=== PATIENT | female | born 1935 | race Caucasian/White ===

== ENCOUNTER 2016-05-23 05:16 | Inpatient (IN) | payer BC, OTHER ==
[2016-04-16 09:37] VITALS: BMI 32.0
[2016-04-16 10:04] LABS: MEAN CORPUSCULAR HGB CONC 32.9 g/dl (32-36)
--- NOTE | 2016-04-16 10:06 | PAT Medication Instructions ---
Service Date Apr 16, 2016. Current Home Medication List Acetaminophen (Tylenol), 1,000 MG PO TID PRN Aspirin Enteric Coated (Ecotrin Or Generic *), 81 MG PO QAM Calcium/Vitamin D (Os-Lambert 500 Plus D), 1 TAB PO QAM Chlorthalidone (Hygroton), 12.5 MG PO QAM Cholecalciferol (Vitamin D), Unknown Dose PO QPM Lovastatin (Mevacor), 20 MG PO HS Naproxen (Aleve), 2 TAB PO BID Ocuvite Preservision (Ocuvite Preservision), 1 TAB PO BID Omeprazole (Prilosec Otc *), 20 MG PO QAM Medication Instructions For Your Scheduled Surgery - Hold the following medications 10 days prior to surgery per surgeon's instructions: Naproxen (Aleve), 2 TAB PO BID - Hold the following medications the morning of surgery: Chlorthalidone (Hygroton), 12.5 MG PO QAM Calcium/Vitamin D (Os-Lambert 500 Plus D), 1 TAB PO QAM Ocuvite Preservision (Ocuvite Preservision), 1 TAB PO BID - Take the following medications the morning of surgery with a sip of water OTHERWISE NOTHING TO EAT OR DRINK AFTER MIDNIGHT: Omeprazole (Prilosec Otc *), 20 MG PO QAM Acetaminophen (Tylenol), 1,000 MG PO TID PRN (may take if needed up to 4 hours prior to surgery) Aspirin Enteric Coated (Ecotrin Or Generic *), 81 MG PO QAM - Take the following medications as scheduled the night before surgery: Cholecalciferol (Vitamin D), Unknown Dose PO QPM Lovastatin (Mevacor), 20 MG PO HS Acetaminophen (Tylenol), 1,000 MG PO TID PRN Ocuvite Preservision (Ocuvite Preservision), 1 TAB PO BID If you have any questions please call us at [phone] or [phone] or [phone]
[2016-04-16 10:11] LABS: HEMATOCRIT 39.2 % (37-47); INR 1.1 (0.9-1.1); MEAN CORPUSCULAR HEMOGLOBIN 29.9 pg (25-34); PARTIAL THROMBOPLASTIN RATIO 1.1; PROTHROMBIN TIME (PATIENT) 11.4 SECONDS (9.0-12.0); RED BLOOD COUNT 4.31 M/uL (4.2-5.4)
[2016-04-16 10:28] LABS: BASO % 0.6 %; BASO ABS # 0.04 K/uL (0-0.2); COMPLETE YES; EOS % 1.9 %; IG% 0.2 %; LYMPH % 40.5 %; LYMPH ABS # 2.55 K/uL (1.2-3.4); NEUT % 47.8 %; PLATELET COUNT 136 K/uL (130-400); PLT ESTIMATE DECREASED
[2016-04-16 10:55] LABS: BLOOD UREA NITROGEN 29 mg/dl (7-18); BUN/CREATININE RATIO 29.4 (10-20); CALCIUM 9.3 mg/dl (8.5-10.1); CARBON DIOXIDE 27 mmol/L (21-32); CHLORIDE 106 mmol/L (98-107); CREATININE 0.97 mg/dl (0.60-1.20); GLUCOSE 69 mg/dl (70-99); POTASSIUM 3.8 mmol/L (3.5-5.1); SODIUM 142 mmol/L (136-145)
[2016-04-16 10:58] LABS: C-REACTIVE PROTEIN < 0.29 mg/dl (0-0.29)
--- NOTE | 2016-04-16 11:07 | DIAGNOSTIC IMAGING REPORT ---
CHEST PREADMISSION(PA/LAT) CLINICAL HISTORY: Preoperative evaluation. COMPARISON STUDY: Chest radiograph February 21, 2009. FINDINGS: Lung volumes are normal. There is no consolidation or evidence of pulmonary edema. Cardiac size is normal. Mediastinal contours are normal. A few small nodular densities within the lungs are unchanged. IMPRESSION: No acute cardiopulmonary findings. Electronically signed by: Jerrod Castellano M.D. 04/16/2016 11:05 AM Dictated Date/Time: 04/16/2016 11:04 AM
--- NOTE | 2016-05-16 18:10 | HISTORY & PHYSICAL EXAMINATION ---
DATE OF ADMISSION: 05/23/2016 CHIEF COMPLAINT: Left hip pain. HISTORY OF PRESENT ILLNESS: The patient is an 80-year-old female from [place], well known to me for a previous right hip replacement and left knee replacement who presents for treatment of her left hip. She developed increased pain and discomfort in her left groin area. We did put a shot in her bursa in the past that has helped her minimally. She continues to have developed debilitating pain in her groin, which is increased with weightbearing. It hurts her all the time. The more she walks, the more it hurts. It radiates down into her knee. Her walking tolerance is limited due to her pain. She would like to proceed with hip replacement. PAST MEDICAL HISTORY: 1. Hypertension. 2. Elevated cholesterol. 3. Sciatica. 4. Gastroesophageal reflux disease. 5. Mild obesity with BMI of 32. PAST SURGICAL HISTORY: Include: 1. Left total knee replacement on 04/06/2009. 2. Right hip replacement back in August of 2006. 3. Tubal ligation. 4. Cholecystectomy. 5. Liver abscess. ALLERGIES: None. CURRENT MEDICINES: 1. Omeprazole 20 mg a day. 2. Lovastatin 20 mg a day. 3. Preservision twice a day, each eye. 4. Calcium with Vitamin D. 5. Hydrochlorothiazide 12.5 mg a day. 6. Baby aspirin once a day. SOCIAL HISTORY: An 80-year-old female patient from [place]. She does not smoke. FAMILY HISTORY: Noncontributory. REVIEW OF SYSTEMS: Negative for diabetes. Denies any chest pain or shortness of breath. No history of DVT or PE. PHYSICAL EXAMINATION: GENERAL: Reveals a healthy pleasant elderly female. She looks to be in relatively good health. HEENT: Benign. NECK: Supple. No lymphadenopathy. LUNGS: Clear to auscultation. HEART: Has a regular rate and rhythm. ABDOMEN: Soft, nontender, nondistended. EXTREMITIES: Grossly neurovascularly intact except as follows: Examination of the left hip and leg reveals the patient ambulates independently. She does limp on the left side. She has got pain with hip motion. Hip motion is internal rotation to neutral, external rotation to 20 degrees. She is tender over the greater trochanter bursa. Negative straight leg raise. She is neurologically intact. X-RAYS: X-rays of the left hip were reviewed. It shows advanced left hip DJD. She has got fairly concentric disease. She has got osteophytes around the acetabulum as well as the femoral head. Arthritis has progressed significantly from her films from 2012. ASSESSMENT: An 80-year-old female status post right hip replacement and left knee replacement with advanced left hip degenerative joint disease. She has failed conservative treatment and would like to have her hip replaced. PLAN: We are going to take her to the operative room and do a left total hip replacement. The risks and benefits of this procedure were explained to the patient including but not limited to DVT, PE, , infection, neurological, neurovascular, bleeding problems, pain, limited range of motion, stiffness, failure to relieve symptoms, incomplete relief of symptoms, need for further surgery in the future, fracture, leg length inequality, nerve palsy, dislocation, etc. The patient understands and desires to proceed. Informed consent was obtained. As far as discharge plans, she is planning to be discharged to home with the [facility] home health program. I will see her back 2 weeks postop. LACIE
[2016-05-23] VITALS (20 sets, daily range): BP systolic 86–140; BP diastolic 55–91; PULSE 59–88; TEMP 35.6–36.8; O2SAT 95–99; Ht 157.5 cm; Wt 81.2 kg
[~2016-05-23] VITALS: Ht 157.5 cm; Wt 81.2 kg
[~2016-05-23 05:16] MED LIST: ACET-1256 PO; ASPEC81 PO; CALC500C70 PO; CHOL100010 PO; HYG/25 PO; LOVA20TA4 PO; MULT-190 PO; NAPR1TAB9 PO; PRLSR20 PO
[2016-05-23] MEDS: LACTATED RINGER'S 1000ML 1,000 ML IV SCH ×2 (05:57→09:17)
[2016-05-23] MEDS ORDERED: METOCLOPRAMIDE HCL 10 MG TAB PO SCH (06:00)
[2016-05-23] MEDS ORDERED: CEFAZOLIN 2000 MG/60 ML D5W 60 ML IV SCH (06:00)
[2016-05-23] MEDS ORDERED: FAMOTIDINE 20 MG TAB PO SCH (06:00)
[2016-05-23] MEDS ORDERED: LACTATED RINGER'S 1000ML IV SCH (06:00)
[2016-05-23] MEDS ORDERED: ACETAMINOPHEN 500 MG TAB PO SCH (06:00)
[2016-05-23] MEDS ORDERED: BUPIVACAINE LIPOSOME 266 MG, BUPIVACAINE/EPINEPHRINE INJ 50 ML, SODIUM CHLORIDE 0.9% PF... INFIL SCH ×3 (06:00)
[2016-05-23] MEDS ORDERED: GABAPENTIN 300 MG CAP PO SCH (06:00)
[2016-05-23] MEDS ORDERED: TRANEXAMIC ACID INJ 1,000 MG in SODIUM CHLORIDE 0.9% 100ML 100 ML IV SCH (06:00)
[2016-05-23] MEDS ORDERED: SCOPOLAMINE 1.5 MG TDSY TD SCH (06:00)
[2016-05-23] MEDS ORDERED: LACTATED RINGER'S 1000ML 500 ML IV ONE (06:00)
[2016-05-23] MEDS ORDERED: BUPIVACAINE 0.5 % 5 MG/1 ML PF 10ML VIAL ONE (06:15)
[2016-05-23] MEDS ORDERED: BUPIVACAINE/EPINEPHRINE 0.5% MPF 1:200,000 30 ML VIAL ONE (06:25)
[2016-05-23] MEDS ORDERED: BACITRACIN 50000 UNIT VIAL ONE (06:25)
[2016-05-23] MEDS ORDERED: LIDOCAINE HCL 2% 2 ML VIAL (20MG/ML) ONE (06:28)
[2016-05-23] MEDS ORDERED: PROPOFOL IV EMULSION 10 MG/ML 20 ML VIAL IV ONE (06:28)
[2016-05-23] MEDS ORDERED: FENTANYL CITRATE INJ 50 MCG/1 ML 2 ML VIAL ONE (06:28)
[2016-05-23] MEDS ORDERED: MoRPHine SULFATE PF 1 MG/ML 10 ML AMP/VIAL ONE (06:29)
--- NOTE | 2016-05-23 06:46 | History & Physical Bridge Note ---
H&P Re-Evaluation Bridge Note: I have examined the patient, reviewed the History & Physical and in the interval since the performance of the History & Physical I have noted the following changes of clinical significance: No changes noted
[2016-05-23] MEDS ORDERED: PHENYLEPHRINE 100MCG/ML 5ML SYR ONE (07:24)
[2016-05-23] MEDS ORDERED: EpHEDrine SULFATE 50MG/5ML SYR ONE (07:24)
[2016-05-23] MEDS ORDERED: ATROPINE SULFATE 0.1 MG/ML 5ML SYR IV PRN (07:30)
[2016-05-23] MEDS ORDERED: EpHEDrine SULFATE INJ 50 MG/ML AMP IV PRN ×2 (07:30→09:30)
[2016-05-23] MEDS ORDERED: FENTANYL CITRATE INJ 50 MCG/1 ML 2 ML VIAL IV PRN (07:30)
[2016-05-23] MEDS ORDERED: ONDANSETRON INJ 2 MG/ML 2 ML VIAL IV PRN ×3 (07:30→09:30)
[2016-05-23] MEDS ORDERED: ESMOLOL HCL 10 MG/ML 10 ML VIAL ONE (07:49)
--- NOTE | 2016-05-23 08:42 | [facility] Post Operative Brief Note ---
Immediate Operative Summary Operative Date May 23, 2016. Pre-Operative Diagnosis Left Hip Advanced Degenerative Joint Disease Post-Operative Diagnosis Left Hip Advanced Degenerative Joint Disease + Chronic Hip Abductor Avuslion Procedure(s) Performed Left Total Hip Arthroplasty--Uncemented with Abductor Repair Surgeon Dr. Mejia Bellows Charger Assembler Surgeon(s) MARGRET Forman Estimated Blood Loss 300 ml Findings Hip DJD + Chronic Hip Abductor Avulsion Fluids (cc crystalloids) 1800 cc Specimens A. Left Femoral Head Drains None Anesthesia Spinal Complication(s) None Disposition Recovery Room / PACU
[2016-05-23] MEDS ORDERED: DiphenhydrAMINE HCL 50 MG/ML VIAL IV PRN ×2 (08:45→09:30)
[2016-05-23] MEDS ORDERED: MAGNESIUM HYDROXIDE SUSP 30 ML UDC PO PRN (08:45)
[2016-05-23] MEDS ORDERED: HYDROmorphone INJ 0.5 MG/0.5 ML SYR IV PRN (08:45)
[2016-05-23] MEDS ORDERED: METOCLOPRAMIDE HCL INJ 5 MG/ML 2 ML VIAL IV PRN (08:45)
[2016-05-23] MEDS ORDERED: BISACODYL 10 MG SUPP PR PRN (08:45)
[2016-05-23] MEDS ORDERED: ALUMINUM/MAGNESIUM/SIMETH (MAALOX MAX) 30 ML UDC PO PRN (08:45)
[2016-05-23] MEDS ORDERED: ZOLPIDEM TARTRATE 5 MG TAB PO PRN (08:45)
[2016-05-23] MEDS ORDERED: OMEPRAZOLE 20 MG PO SCH (09:00)
--- NOTE | 2016-05-23 09:23 | OPERATIVE REPORT ---
DATE OF OPERATION: 05/23/2016 PREOPERATIVE DIAGNOSIS: Left hip degenerative joint disease. POSTOPERATIVE DIAGNOSIS: 1. Left hip degenerative joint disease. 2. Left chronic hip abductor avulsion. PROCEDURE PERFORMED: 1. Left uncemented total hip arthroplasty. 2. Left hip abductor repair. SURGEON: Dr. Gamaliel Mejia. CLAIMS EXAMINER: Kolton Snider PA-C. COMPLICATIONS: None. ESTIMATED BLOOD LOSS: 300 mL. FLUID REPLACEMENT: 1800 mL crystalloid fluid replacement. DRAINS: None. SPECIMENS: Left femoral head sent for pathology. OPERATIVE INDICATIONS: The patient is an 80-year-old fairly healthy active female who has had a long history of joint problems in the past. She had a right hip replacement about 10 years ago and a left knee replacement 7 years ago. Over the past several years she has developed increased pain and discomfort in her left hip and thigh. X-rays revealed advanced hip DJD. The patient elected to proceed with operative treatment. OPERATIVE FINDINGS: Operative findings revealed advanced left hip DJD. She had grade 4 [id number] disease of the femoral head and acetabulum. Fairly significant osteophytes around the acetabulum as well. Moderate synovitis. A large hip joint effusion. OPERATIVE IMPLANTS: Operative implants consisted of: 1. A Biomet G7 size 52 mm acetabular shell. 2. An apex hole eliminator. 3. A 6.5 cancellous acetabular screws, 1 at 35 mm length and 1 at 20 mm length. 4. Highly cross-linked polyethylene liner with 52 mm outer diameter, 32 mm inner diameter with a mcghee placed inferior and posterior. 5. A DePuy size 12 small stature AML femoral stem. 6. A +9/32 mm metal articular ball. OPERATIVE PROCEDURE: The patient taken to the operating room, identified and placed on the operating table in supine position. All contact areas were appropriately padded. IV antibiotics were provided by anesthesia team. A spinal anesthetic had been implemented in the holding area. Melo catheter was placed in sterile fashion. The patient was then placed in the right lateral decubitus position. An axillary roll was placed. Stlberg hip positioner used for positioning. Left hip and leg were then prepped and draped in the usual sterile fashion. A posterolateral approach to the left hip was then performed through a curvilinear incision centered over the greater trochanter. Sharp dissection was carried down through the subcutaneous tissue down to the level of the IT band and gluteal fascia. The IT band and gluteal fascia were then incised longitudinally in line with skin incision. The underlying greater trochanteric bursa was excised. There was a chronic avulsion of the hip abductors both anteriorly and superiorly. There was some bursal tissue which kept some adhesions to some parts. The piriformis and external rotators were then tagged and taken off the posterior aspect of the femur. Great care was taken throughout the procedure to protect the sciatic nerve at all times. Posterior capsulotomy was then performed leaving a large flap for later repair. Hip was internally rotated and dislocated. Femoral neck osteotomy cut was then made with the final cut about a cm above lesser trochanter. The femur was retracted anteriorly and attention was then drawn to the acetabulum. The acetabular labrum was excised. The pulvinar fat was excised. Sequential reaming of the acetabulum was then performed beginning with a size 45 and progressing up to 51. A 52 mm Biomet G7 acetabular shell was then placed in about 40 degrees of lateral opening and 20 degrees of anteversion. It was fixed with a two 6.5 cancellous acetabular screws. The anterior osteophyte was removed. A trial liner was placed. Attention was then drawn to the femur. The proximal femur was entered with a cookie cutter followed by canal finder and lateralizing reamer. Sequential reaming of the femur was then performed beginning with a size 9 and progressing up to 11.5. I then broached beginning with a size 5 small and progressing to a 12 small. We trialed the hip. It was a little loose with a +5 articular ball. With the +9 articular ball, the leg lengths seemed appropriate. Soft tissue tension seemed more appropriate and the hip was fully stable in full extension, external rotation, flexion to 90 degrees, internal rotation to about [address] a mcghee inferior and posterior to maximize stability in flexion, especially with her abductor avulsion. I considered placing trying to place a large implant as there seemed like there was some proximal room but I did not think there was enough for the large stem, especially in this elderly bone. We elected to place these implants. All trial implants were removed. An apex hole eliminator was placed. Highly cross-linked polyethylene liner with a mcghee placed inferior and posterior was placed. A 12 small stature AML femoral stem was impacted in position. A +9/32 mm metal articular ball was placed. The hip was located and once again found to be stable. Attention was then drawn toward closing. The wound was irrigated with copious amounts of pulsatile lavage solution. I did inject locally with 100 mL of a combination of 20 mL of Exparel, 30 mL of normal saline, 50 mL of 0.25% Marcaine with epinephrine. The posterior capsule and external rotators were repaired through drill holes in the posterior trochanter with #2 Ti-Cron suture. I then placed a single Biomet JuggerKnot anchor anteriorly. I scuffed up the anterior bone to the greater trochanter with the use of cautery. I then placed both these sutures through the anterior and superior hip abductors and then tied this down. I then used the sutures to repair the posterior hip capsule and used a free needle to pass these sutures through the superior aspect of the hip abductors. I pulled this down after scuffing up the trochanter and then tied this. We got good hip abductor approximation. Attention was then drawn toward closing. The wound was irrigated once again with pulsatile lavage solution. The IT band and gluteal fascia were then closed with #1 PDS suture in running fashion. The subcutaneous tissues were then closed with 2 layers with the deep layer #1 Vicryl suture and subcutaneous tissues with 2-0 Dexon suture in a buried interrupted fashion. Skin was closed with skin holly. The leg was then cleaned and dried and a sterile dressing of Xeroform, 4 x 4, ABD pad and foam tape was applied. The patient then transferred to the recovery room in stable condition. The patient tolerated the procedure with no complications. All needle and sponge counts were correct at the end of the operation. I attest to the content of the Intraoperative Record and any orders documented therein. Any exceptio ns are noted below.
[2016-05-23] MEDS ORDERED: MIDAZOLAM HCL 1 MG/ML 2ML VIAL ONE (09:28)
[2016-05-23] MEDS ORDERED: NALOXONE HCL INJ 1 MG in SODIUM CHLORIDE 0.9% 1000ML 1,000 ML IV PRN (09:29)
[2016-05-23] MEDS ORDERED: NALOXONE HCL INJ 0.08 MG in SYRINGE 1.8 ML IV PRN (09:29)
[2016-05-23] MEDS ORDERED: GLYCOPYRROLATE INJ 0.2 MG/ML VIAL ONE (09:29)
[2016-05-23] MEDS ORDERED: LACTATED RINGER'S 1000ML 500 ML IV PRN (09:29)
[2016-05-23] MEDS ORDERED: SODIUM CHLORIDE 0.9% 1000ML 1,000 ML IV PRN (09:29)
--- NOTE | 2016-05-23 09:29 | Anesthesiology Progress Note ---
Anesthesia Post Op Note Date & Time May 23, 2016 at 09:29 Vital Signs Pain Intensity: 0 Vital Signs Past 12 Hours Date Time Temp Pulse Resp B/P Pulse Ox O2 Delivery O2 Flow Rate FiO2 05/23/16 09:10 36.3 84 22 109/55 97 Nasal Cannula 2 05/23/16 09:00 88 18 100/56 97 Nasal Cannula 2 05/23/16 08:50 91 16 97/55 98 Nasal Cannula 2 05/23/16 08:41 36.4 95 20 90/53 97 Nasal Cannula 2 05/23/16 05:53 36.6 62 16 122/72 98 Room Air Notes Mental Status: alert / awake / arousable, participated in evaluation Pt Amnestic to Procedure: Yes Nausea / Vomiting: adequately controlled Pain: adequately controlled Airway Patency, RR, SpO2: stable & adequate BP & HR: stable & adequate Hydration State: stable & adequate Neuraxial Anesthesia: was administered, sensory block is resolving Anesthetic Complications: no major complications apparent
[2016-05-23] MEDS ORDERED: MEPERIDINE HCL 25 MG/ML CARP IV PRN (09:30)
[2016-05-23] MEDS ORDERED: NO NARCOTICS OR SEDATIVES SCH (09:30)
[2016-05-23] MEDS ORDERED: MoRPHine SULFATE 2 MG/ML CARP IV PRN (09:30)
[2016-05-23] MEDS ORDERED: NALBUPHINE HCL INJ 10 MG/ML AMP IV PRN (09:30)
[2016-05-23] MEDS ORDERED: NALOXONE HCL 0.4 MG/1 ML VIAL/CARP IV PRN (09:30)
[2016-05-23] MEDS ORDERED: MoRPHine SULFATE PF 1 MG/ML 10 ML AMP/VIAL IT PRN (09:30)
--- NOTE | 2016-05-23 09:42 | DIAGNOSTIC IMAGING REPORT ---
AP PELVIS AND LEFT HIP 2 VIEWS CLINICAL HISTORY: Postop left hip arthroplasty COMPARISON STUDY: AP pelvis dated 11/30/2015 FINDINGS: There are old left ischio pubic ring fractures. There is evidence for a prior total right hip arthroplasty. There is a new total left hip arthroplasty. The acetabular and femoral components appear well seated. There is no dislocation. Ovoid surgical skin holly are visualized. There is air in the soft tissues consistent with recent surgery. IMPRESSION: Postsurgical changes of a recent total left hip arthroplasty. Electronically signed by: Elmo Benz M.D. 05/23/2016 9:41 AM Dictated Date/Time: 05/23/2016 9:39 AM
[2016-05-23] MEDS: KETOROLAC TROMETHAMINE 15 MG/ML VIAL IV. SCH ×3 (12:26→23:52)
[2016-05-23] MEDS: D5W AND 1/2NSS + 20MEQ KCL 1,000 ML IV SCH ×2 (12:26→21:05)
--- NOTE | 2016-05-23 13:47 | PROGRESS NOTE ---
DATE: 05/23/2016 DATE: 05/23/2016. SUBJECTIVE: An 80-year-old white female postop from a left hip replacement. She is doing well. She is resting in bed. She denies any pain. No chest pain or shortness of breath. Not feeling dizzy or lightheaded. OBJECTIVE: VITAL SIGNS: Temperature is 36.2. Vital signs stable. PHYSICAL EXAMINATION: GENERAL: A pleasant elderly female. She is lying in bed, looks comfortable. LUNGS: Clear to auscultation. HEART: Regular rate and rhythm. ABDOMEN: Soft, nontender, nondistended. EXTREMITY EXAMINATION: Grossly neurovascularly intact except as follows: Examination of the left lower extremity reveals the leg to be well aligned. Leg lengths are equal. Hip is located. She can dorsiflex and plantarflex her foot appropriately. She is neurologically intact. X-RAYS: X-rays of the left hip from recovery room were reviewed. It shows uncemented total hip arthroplasty. Components looked to be in good position. No signs of problems. ASSESSMENT: An 80-year-old female postop from a left hip replacement doing well. Her pain is controlled. She is neurologically intact. Hip is located. PLAN: 1. DVT prophylaxis including thigh-high TEDs, SCDs, and aspirin twice a day. 2. PT/OT. Weightbearing as tolerated. Left total hip protocol. 3. Pain control. Doing well with current pain regimen. We will try and limit narcotics to avoid confusion. 4. IV antibiotics x24 hours. 5. Disposition: Plan to discharge to home with some home health once adequately recovered.
[2016-05-23] MEDS ORDERED: TRANEXAMIC ACID INJ 1,000 MG in SODIUM CHLORIDE 0.9% 100ML 100 ML IV ONE (14:45)
[2016-05-23] MEDS: ACETAMINOPHEN 500 MG TAB PO SCH ×2 (15:05→21:08)
[2016-05-23] MEDS: FERROUS GLUCONATE 324 MG TAB PO SCH ×2 (15:06→18:17)
[2016-05-23] MEDS: CHECK SCOPOLAMINE PATCH PLACEMENT SCH ×2 (16:00→23:53)
[2016-05-23] MEDS: CEFAZOLIN IV 2,000 MG in DEXTROSE 5% 50ML 50 ML IV SCH ×2 (16:01→23:52)
[2016-05-23] MEDS ORDERED: ULT50X PO (20:24)
[2016-05-23] MEDS ORDERED: FRRG PO (20:24)
[2016-05-23] MEDS ORDERED: ASPEC325 PO (20:24)
[2016-05-23] MEDS ORDERED: ACET-1138 PO (20:24)
[2016-05-23] MEDS: ASPIRIN 325 MG ECTAB PO SCH (21:06)
[2016-05-23] MEDS: DOCUSATE SODIUM 100 MG CAP PO SCH (21:06)
[2016-05-23] MEDS: LOVASTATIN 20 MG TAB PO SCH (21:10)
[2016-05-23] MEDS: CEROVITE ADV FORMULA TAB PO SCH (21:11)
[2016-05-24] VITALS (8 sets, daily range): BP systolic 96–152; BP diastolic 58–96; PULSE 60–98; TEMP 36.4–37; O2SAT 95–99
[2016-05-24] MEDS ORDERED: DC INTRASPINAL MORPHINE ONE (01:00)
[2016-05-24 05:55] LABS: MEAN CELL VOLUME 89.2 fL (80-100); MEAN CORPUSCULAR HEMOGLOBIN 28.9 pg (25-34); MEAN CORPUSCULAR HGB CONC 32.4 g/dl (32-36); PLATELET COUNT 114 K/uL (130-400); RED BLOOD COUNT 3.25 M/uL (4.2-5.4); WHITE BLOOD COUNT 8.17 K/uL (4.8-10.8)
[2016-05-24 05:56] LABS: BASO % 0.2 %; BASO ABS # 0.02 K/uL (0-0.2); BUN/CREATININE RATIO 18.7 (10-20); CALCIUM 7.9 mg/dl (8.5-10.1); COMPLETE YES; CREATININE 0.89 mg/dl (0.60-1.20); DOHLE BODIES 1+; EOS % 0.4 %; IG% 0.2 %; LYMPH % 24.6 %; LYMPH ABS # 2.01 K/uL (1.2-3.4); MONO % 13.1 %; NEUT % 61.5 %; PLT ESTIMATE NORMAL; POTASSIUM 3.5 mmol/L (3.5-5.1)
[2016-05-24] MEDS: ACETAMINOPHEN 500 MG TAB PO SCH ×3 (06:04→22:12)
[2016-05-24] MEDS: D5W AND 1/2NSS + 20MEQ KCL 1,000 ML IV SCH (06:05)
[2016-05-24] MEDS: KETOROLAC TROMETHAMINE 15 MG/ML VIAL IV. SCH ×4 (06:05→23:58)
[2016-05-24] MEDS: CHECK SCOPOLAMINE PATCH PLACEMENT SCH ×3 (08:00→23:33)
--- NOTE | 2016-05-24 08:22 | PROGRESS NOTE ---
DATE: 05/24/2016 SUBJECTIVE: An 80-year-old white female postop day 1 from a left hip replacement. She is doing well. Not having any pain. Denies any chest pain or shortness of breath. Not feeling dizzy or lightheaded. OBJECTIVE: VITAL SIGNS: Temperature 36.8. Vital signs stable. PHYSICAL EXAMINATION: GENERAL: Reveals a pleasant elderly female. She is lying in bed and looks comfortable. LUNGS: Clear to auscultation. HEART: Has a regular rate and rhythm. ABDOMEN: Soft, nontender, nondistended. EXTREMITIES: Grossly neurovascularly intact except as follows: Examination of the left lower extremity reveals the leg to be well aligned. Hip is located. Dressing is clean, dry and intact. She can dorsiflex and plantarflex her foot appropriately. NEUROLOGIC: She is neurologically intact. LABORATORY DATA: Hemoglobin 9.4, hematocrit 29.0. Electrolytes are stable. ASSESSMENT: An 80-year-old white female postop day 1 from a left total hip replacement and hip abductor repair, doing pretty well. Pain is controlled. Hip is located. She is neurologically intact. PLAN: 1. DVT prophylaxis including thigh-high TEDs, SCDs, and aspirin twice a day. 2. PT/OT. She can weightbear as tolerated. Left total hip protocol. No active hip abduction for the first 6 weeks. 3. Pain control. Doing well with the current pain regimen. 4. Disposition: Plan to discharge her home with home health once adequately recovered.
--- NOTE | 2016-05-24 08:44 | Discharge Instructions ---
Discharge Instructions Admission Reason for Admission: Left Hip Degenerative Joint Disease, Bursitis Of H Discharge Discharge Diagnosis / Problem: Left Hip Replacement Discharge Goals Goal(s): Decrease discomfort, Improve function, Increase independence, Improve disease control, Therapeutic intervention Activity Recommendations Activity Limitations: per Instructions/Follow-up section (Total Hip Precautions ) Weightbearing Status: Left weightbearing . Instructions / Follow-Up Instructions / Follow-Up ACTIVITY RECOMMENDATIONS: Physical Therapy: * Aggressive physical therapy is not usually needed. You will learn to take care of yourself safely and walk. * Follow the "Hip Precautions Instructions." * In some cases, the social work professor at the hospital will arrange to have a therapist come to your house for the first couple of weeks to help you learn these skills. * You need to practice on your own or with the help of a family member as needed. * When you learn these skills, most of the therapy can be done on your own. Home Exercise: * You were shown a series of exercises in the hospital. Do these exercises three to four times each day including the exercises you were shown in physical therapy. Walking: * Get up and walk several times each day. For the first four weeks, try not to stand or walk for more than one hour at a time. If you do stand or walk for more than one hour, you will not hurt anything, but your leg will likely swell. * As you feel comfortable, you may change from the walker or crutches to a cane and then to independent walking. MEDICATIONS: New Medicine: * You will likely be taking one or more of these medicines: 1. Tramadol - Take, as directed, when you need it, every four to six hours to control your pain. 2. Iron Sulfate - Take three times each day for the month after surgery to help you replace the blood lost during surgery. 3. Aspirin - Thins your blood to lessen the chance of forming a blood clot. * The most common side effects of pain medicine and iron are nausea and constipation. If nausea or constipation is too much of a problem or if you have any questions about your new medicines or doses, call [facility] at . We will try to help you manage these issues. VERY IMPORTANT TO READ AND REVIEW" Pain: * The immediate post-operative period after hip replacement surgery is often quite painful. * You are given a prescription for pain medicine. You should take it, as directed, when you need it, especially before physical therapy and before going to bed. Pain that interferes with sleep is very common and can last several months. * You will likely need pain medicine for the first two to four weeks. It will not stop all of the pain. The pain will lessen and as you feel better, you may change to milder pain medicine such as Tylenol. * The most common side effects of pain medicine are nausea and constipation, so don't take more than you need. SPECIAL CARE INSTRUCTIONS: TEDs/Elastic Stockings: * The white elastic stockings help limit swelling and prevent blood clots from forming in your legs. The more you wear them, the more they work. * Wear them for six weeks. Prevention of Infection: * Take antibiotics one hour before any dental cleaning, dental work, urological procedure, gastrointestinal procedure or any invasive surgery in order to prevent your new joint from getting infected. * You may get the antibiotics from the doctor performing the procedure or you may call our office at before and we will call in a prescription to the pharmacy of your choice. Things to Watch For: * Drainage from the incision site that occurs more than one week after your surgery. * Severely increased leg pain or swelling. * Increased redness at the incision site. * Fever above 102 degrees Fahrenheit. * Unusual chest pain or shortness of breath. * Unusual pain or burning with urination. Call [facility] at with any of the above problems or if you have any questions about your medicines or recovery. FOLLOW UP VISIT: Make an appointment to see your doctor for approximately two weeks after surgery for a progress check and staple removal by calling the office at . Current Hospital Diet Patient's current hospital diet: Regular Diet Discharge Diet Recommended Diet: Regular Diet Procedures Procedures Performed: Left Total Hip Arthroplasty--Uncemented with Abductor Repair Pending Studies Studies pending at discharge: no Medical Emergencies . Who to Call and When: Medical Emergencies: If at any time you feel your situation is an emergency, please call [phone] immediately. . Non-Emergent Contact Non-Emergency issues call your: Surgeon . "Provider Documentation" section prepared by Gamaliel Mejia. VTE Core Measure Inpt VTE Proph given/why not?: Other Anticoagulation, T.E.D. Stockings, SCD's
[2016-05-24] MEDS: CEROVITE ADV FORMULA TAB PO SCH ×2 (08:54→20:15)
[2016-05-24] MEDS: FERROUS GLUCONATE 324 MG TAB PO SCH ×3 (08:55→18:02)
[2016-05-24] MEDS: PANTOprazole SOD 40 MG TAB PO SCH (08:55)
[2016-05-24] MEDS: CHLORTHALIDONE 25 MG TAB PO SCH (08:55)
[2016-05-24] MEDS: ASPIRIN 325 MG ECTAB PO SCH ×2 (08:55→20:15)
[2016-05-24] MEDS: DOCUSATE SODIUM 100 MG CAP PO SCH ×2 (08:55→20:15)
[2016-05-24] MEDS: CALCIUM 600MG + VIT D 400 IU TAB PO SCH (08:56)
[2016-05-24] MEDS ORDERED: MULTIVITAMIN TAB PO SCH (09:00)
[2016-05-24] MEDS: LOVASTATIN 20 MG TAB PO SCH (20:15)
[2016-05-24] MEDS: TRAMADOL HCL 50 MG TAB PO PRN (20:16)
[2016-05-25] MEDS: ACETAMINOPHEN 500 MG TAB PO SCH (06:13)
[2016-05-25] MEDS: KETOROLAC TROMETHAMINE 15 MG/ML VIAL IV. SCH (06:14)
[2016-05-25 07:01] VITALS: BP 123/74; PULSE 88; TEMP 36.8; O2SAT 94
[2016-05-25] MEDS: DOCUSATE SODIUM 100 MG CAP PO SCH (08:41)
[2016-05-25] MEDS: CEROVITE ADV FORMULA TAB PO SCH (08:41)
[2016-05-25] MEDS: ASPIRIN 325 MG ECTAB PO SCH (08:41)
[2016-05-25] MEDS: CALCIUM 600MG + VIT D 400 IU TAB PO SCH (08:42)
[2016-05-25] MEDS: CHLORTHALIDONE 25 MG TAB PO SCH (08:42)
[2016-05-25] MEDS: PANTOprazole SOD 40 MG TAB PO SCH (08:42)
[2016-05-25] MEDS: FERROUS GLUCONATE 324 MG TAB PO SCH (08:42)
[2016-05-25 08:52] VITALS: BP 123/74; PULSE 88; TEMP 36.8; O2SAT 94
--- NOTE | 2016-05-25 10:35 | PROGRESS NOTE ---
DATE: 05/25/2016 SUBJECTIVE: An 80-year-old female, postop day 2 from left total hip replacement. She is doing well. Pain is controlled. No chest pain or shortness of breath. Not feeling dizzy or lightheaded. OBJECTIVE: VITAL SIGNS: Temperature 36.8. Vital signs stable. PHYSICAL EXAMINATION: GENERAL: Reveals a healthy, pleasant elderly female. She is lying in bed and looks comfortable. LUNGS: Clear to auscultation. HEART: Regular rate and rhythm. ABDOMEN: Soft, nontender, nondistended. EXTREMITIES: Grossly neurovascularly intact except as follows: Examination of the left lower extremity reveals the incision to be clean, dry and intact. Leg lengths were equal. She can dorsiflex and plantarflex her foot appropriately. She is neurologically intact. ASSESSMENT: An 80-year-old white female, postop day 2 from left total hip replacement, doing pretty well. Pain is controlled. Hip is located. She is neurologically intact. PLAN: 1. DVT prophylaxis including thigh-high TEDs, SCDs, and aspirin twice a day. 2. PT/OT. Weightbearing as tolerated. Left total hip protocol. 3. Pain control, doing pretty well with current pain regimen. 4. Disposition: Plan to discharge to home with some home health.
[2016-05-25] MEDS: TRAMADOL HCL 50 MG TAB PO PRN (10:52)
--- NOTE | 2016-06-04 15:34 | DISCHARGE SUMMARY ---
ADMITTING PHYSICIAN AND SURGEON: Dr. Mejia. ADMITTING DIAGNOSIS: Left hip degenerative joint disease. SURGERIES PERFORMED: 1. Left total hip arthroplasty. 2. Left hip abductor repair. SECONDARY DIAGNOSES: Includes hypertension, elevated cholesterol, sciatica, gastroesophageal reflux disease, and mild obesity. CONSULTS: None obtained. HISTORY AND PHYSICAL EXAMINATION: Well documented in the patient's chart. HOSPITAL COURSE: The patient was admitted on 05/23/2016 and underwent total hip arthroplasty as above. She tolerated the procedure well. There were no complications. She was transferred to PACU postoperatively and later to the orthopedic floor for further care. She was given Ancef for antibiotic prophylaxis, ZBIGNIEW stockings, SCDs and aspirin for DVT prophylaxis. Hemoglobin, hematocrit and vital signs were monitored during her hospital stay and remained stable. She developed some postoperative anemia with a hemoglobin of 9.4. She did not require blood transfusions. There were no complications. By postoperative day #2, she was tolerating a general diet. Pain was controlled with oral pain medicine. She was participating in physical therapy and had no signs or symptoms of deep vein thrombosis. On postoperative day #2, she was discharged home in good condition, set up with home health services. She was given printed discharge instructions including prescriptions for extra strength Tylenol, aspirin 325 mg b.i.d., iron supplement and tramadol. Continue her home medicines with the exception of her home dose of aspirin and Tylenol, which were changed. Continue physical therapy and weightbearing as tolerated. Continue total hip precautions, ZBIGNIEW stockings and physical therapy. Follow up with Dr. Mejia in 10-12 days or sooner for problems or concerns.
== END 2016-05-25 10:55 | disposition home health service (06) | DRG 470 ==
LOC: ENRESERVDT → ENRESERVTM → ENRESERV → C.ACU 05:16 → C.3E 06:35
PROVIDERS: ADMIT Orthopaedic Surgery Sports Medicine; ATTEND Orthopaedic Surgery Sports Medicine
PROC: 0MQ Bursae and Ligaments, Repair (ICD-10-PCS; 2016-05-23)
PROC: 0SRB02A Replacement of Left Hip Joint with Metal on Polyethylene Synthetic Substitute, Uncemented, Open Approach (ICD-10-PCS; principal; 2016-05-23 07:00)
DX: M16.12 Unilateral primary osteoarthritis, left hip (principal); E78.00 Pure hypercholesterolemia, unspecified; I10 Essential (primary) hypertension; K21.9 Gastro-esophageal reflux disease without esophagitis; E66.9 Obesity, unspecified; Z96.641 Presence of right artificial hip joint; Z96.652 Presence of left artificial knee joint; Z98.890 Other specified postprocedural states

== ENCOUNTER → 2016-07-25 | Outpatient (CLI) | payer BC ==
[~2016-07-25] MED LIST changes: +ACET-1138 PO; -ACET-1256 PO; +ASPEC325 PO; -ASPEC81 PO; +FRRG PO; +ULT50X PO
[2016-07-25 13:51] LABS: CALCIUM 9.7 mg/dl (8.5-10.1)
[2016-07-25 13:55] LABS: ALT/SGPT 20 U/L (12-78); AST/SGOT 16 U/L (15-37); BLOOD UREA NITROGEN 27 mg/dl (7-18); BUN/CREATININE RATIO 24.3 (10-20); CARBON DIOXIDE 26 mmol/L (21-32); CHLORIDE 109 mmol/L (98-107); CHOLESTEROL 172 mg/dl (0-200); GLUCOSE 98 mg/dl (70-99); MAGNESIUM 1.9 mg/dl (1.8-2.4); POTASSIUM 3.7 mmol/L (3.5-5.1); SODIUM 143 mmol/L (136-145); TRIGLYCERIDES 233 mg/dl (0-150); VERY LOW DENSITY LIPOPROT CALC 47 mg/dl
[2016-07-25 13:58] LABS: CHOLESTEROL/HDL RATIO 3.8; HDL CHOLESTEROL 45 mg/dl; LDL CHOLESTEROL CALCULATED 80 mg/dl
== END | disposition home or self-care (01) ==
LOC: C.LABMFLN 11:10
PROVIDERS: ATTEND Family Medicine
DX: E78.00 Pure hypercholesterolemia, unspecified (principal); I10 Essential (primary) hypertension; E55.9 Vitamin D deficiency, unspecified

== ENCOUNTER → 2016-07-31 | Outpatient (CLI) | payer BC ==
[2016-07-31 13:28] LABS: URINE APPEARANCE CLOUDY (CLEAR); URINE BILIRUBIN NEG (NEG); URINE COLOR YELLOW; URINE EPITHELIAL CELL AUTO >30 /lpf (0-5); URINE NITRITE POS (NEG); URINE PH 5.5 (4.5-7.5); URINE SPECIFIC GRAVITY 1.017 (1.000-1.030); UROBILINOGEN NEG (NEG)
[2016-07-31 13:38] LABS: MANUAL MICROSCOPIC REQUIRED? NO; REVIEW REQ? YES
== END | disposition home or self-care (01) ==
LOC: C.LABMFLN 10:15
PROVIDERS: ATTEND Family Medicine
DX: R35.0 Frequency of micturition (principal)

== ENCOUNTER → 2017-01-09 | Outpatient (CLI) | payer BC ==
[2017-01-09 14:01] LABS: ALT/SGPT 21 U/L (12-78); AST/SGOT 19 U/L (15-37); BLOOD UREA NITROGEN 21 mg/dl (7-18); BUN/CREATININE RATIO 27.2 (10-20); CALCIUM 9.3 mg/dl (8.5-10.1); CARBON DIOXIDE 26 mmol/L (21-32); CHLORIDE 109 mmol/L (98-107); CREATININE 0.78 mg/dl (0.60-1.20); GLUCOSE 90 mg/dl (70-99); POTASSIUM 3.8 mmol/L (3.5-5.1); SODIUM 142 mmol/L (136-145)
[2017-01-09 14:04] LABS: CHOLESTEROL 187 mg/dl (0-200); CHOLESTEROL/HDL RATIO 3.4; HDL CHOLESTEROL 55 mg/dl; LDL CHOLESTEROL CALCULATED 99 mg/dl; TRIGLYCERIDES 166 mg/dl (0-150); VERY LOW DENSITY LIPOPROT CALC 33 mg/dl
== END | disposition home or self-care (01) ==
LOC: C.LABMFLN 08:40
PROVIDERS: ATTEND Family Medicine
DX: E78.00 Pure hypercholesterolemia, unspecified (principal); I10 Essential (primary) hypertension; E55.9 Vitamin D deficiency, unspecified

== ENCOUNTER → 2017-02-25 | Outpatient (CLI) | payer BC ==
--- NOTE | 2017-02-26 07:53 | MAMMOGRAPHY REPORT ---
BILATERAL DIGITAL SCREENING MAMMOGRAM TOMOSYNTHESIS WITH CAD: 02/25/2017 CLINICAL HISTORY: Routine screening. Patient has no complaints. TECHNIQUE: Breast tomosynthesis in addition to standard 2D mammography was performed. Current study was also evaluated with a Computer Aided Detection (CAD) system. COMPARISON: Comparison is made to exams dated: 02/19/2015 mammogram, 02/13/2014 mammogram, 3 mammogram, 01/16/2012 mammogram, 02/03/2011 mammogram, and 04/06/2009 mammogram - [facility] . BREAST COMPOSITION: The tissue of both breasts is almost entirely fatty. FINDINGS: No suspicious masses, calcifications, or areas of architectural distortion are noted in ei ther breast. There has been no significant interval change compared to prior exams. IMPRESSION: ACR BI-RADS CATEGORY 1: NEGATIVE There is no mammographic evidence of malignancy. A 1 year screening mammogram is recommended. The pa tient will receive written notification of the results. Approximately 10% of breast cancers are not detected with mammography. A negative mammographic report should not delay biopsy if a clinically suggestive mass is present. Meenakshi Arguello M.D. /:02/25/2017 15:26:42 Jewel Gauger: Arlet JIMENES)(Khris), [facility] letter sent: Normal 1/2 BI-RADS Code: ACR BI-RADS Category 1: Negative
== END | disposition home or self-care (01) ==
LOC: C.MAMM 13:38
PROVIDERS: ATTEND Family Medicine
DX: Z12.31 Encounter for screening mammogram for malignant neoplasm of breast (principal)

== ENCOUNTER → 2017-04-27 | Day surgery (SDC) | payer BC ==
[2017-04-20 10:31] VITALS: Ht 157.5 cm; Wt 77.3 kg
[~2017-04-27] VITALS: Ht 157.5 cm; Wt 77.3 kg
[~2017-04-27] MED LIST changes: +500ML BSS 0.3ML EPI 1:1000PF IRRIG ONE; -ACET-1138 PO; +ACETAMINOPHEN 325 MG TAB PO PRN; +AMLO2.5T PO; +AMVISC PLUS 0.8ML SYRINGE INT OCU ONE; +ASPCH81X PO; -ASPEC325 PO; +BRIMONIDINE TART 0.2% OP SOLN PER DROP CHARGE ONE; +BRIMONIDINE TARTRATE 0.2% 5ML ONE; +BSS FLUSH ONE; -CHOL100010 PO; +CHOL1TAB46 PO; +ENDOCOAT 0.85ML SYRINGE INT OCU ONE; +EpINEphrine INJ 1MG/ML AMP 1 MG/ML AMP ONE; -FRRG PO; -HYG/25 PO; +LACTATED RINGER'S 1000ML 500 ML IV SCH; +LIDOCAINE 4% OP SOLN DROP CHARGE ONE; +LIDOCAINE 4% OP SOLN DROP CHARGE OPL SCH; +LIDOCAINE HCL 1% MPF 2 ML VIAL ONE; +LIDOCAINE HCL 2% 2 ML VIAL (20MG/ML) ONE; +MELO15TA4 PO; +MIDAZOLAM HCL 1 MG/ML 2ML VIAL ONE; +MOXIFLOXACIN OPH SOLN PER DROP CHARGE ONE; -MULT-190 PO; +MULT60CA PO; -NAPR1TAB9 PO; +POVIDONE-IODINE OP SOLN 30 ML BTL ONE; +PROPARACAINE 0.5% OP SOLN PER DROP CHARGE OPL SCH; +PROPOFOL IV EMULSION 10 MG/ML 20 ML VIAL IV ONE; +TOBRAMYCIN/DEXAMETHASONE OPH OINT PER APPLN CHARGE ONE; -ULT50X PO; +VISCOAT 0.5ML SYRINGE INT OCU ONE
[2017-04-27] MEDS: PHENYLEPHRINE HCL 2.5% OP SOLN PER DROP CHARGE OPL SCH ×2 (06:36→06:42)
[2017-04-27] MEDS: TROPICAMIDE 1% OP SOLN PER DROP CHARGE OPL SCH ×2 (06:37→06:43)
[2017-04-27] MEDS: CYCLOPENTOLATE HCL 1% OP SOLN PER DROP CHARGE OPL SCH ×2 (06:38→06:44)
[2017-04-27] MEDS: KETOROLAC 0.5% OP SOLN PER DROP CHARGE OPL SCH ×2 (06:39→06:45)
[2017-04-27] MEDS: MOXIFLOXACIN OPH SOLN PER DROP CHARGE OPL SCH ×2 (06:40→06:47)
--- NOTE | 2017-04-27 07:29 | [facility] Operative Report ---
Operative Report Operative Date Apr 27, 2017. Pre-Operative Diagnosis Left Eye Cataract Post-Operative Diagnosis Same Procedure(s) Performed Left Eye Cataract Phacoemulisification With Intraocular Lens Implant Surgeon Dr. Jordan Draughtsman Surgeon(s) None Estimated Blood Loss None Findings cataract left eye Fluids see aneshtesia record Specimens None Drains None Anesthesia Type MAC Complication(s) none Disposition no Recovery Room / PACU Indications decreased vision left eye Description of Procedure After informed consent was obtained in the holding area the patient was wheeled back to the operating room where cardiac monitoring leads and oxygen by nasal cannula was administered by Anesthesia. Gentle IV sedation was given, and the patient's left eye was prepped and draped in usual sterile fashion. A wire lid speculum was placed into the left eye and the operating microscope was swung into position. Using 0.12 forceps and a Supersharp blade a paracentesis port was made 2 o'clock hours away from the 3 o'clock position of the patient's left eye. 1% non-preserved Lidocaine was then injected into the anterior chamber for anesthesia. A 2.0 mm keratotome blade was then used to make a shelved clear corneal incision at the 3 o'clock position of the left eye. Amvisc was injected into the anterior chamber and a cystotome and Utrata forceps were used to perform a curvilinear capsulorrhexis. BSS on a hydrodissection cannula was used to hydrodissect the lens nucleus away from the capsular bag. The phacoemulsification handpiece was then used in a stop and chop fashion to remove the lens nucleus. The irrigation and aspiration handpiece was then used to remove the residual cortical material. Amvisc was injected into the capsular bag and anterior chamber and a Bausch & Lomb MX60 21.0 Diopter intraocular lens was injected into the capsular bag. Irrigation and aspiration handpiece was used to remove the residual viscoelastic material. The wounds were hydrated and noted to be watertight. The wire lid speculum was removed from the eye. Vigamox, Brimonidine, and TobraDex ointment were placed on the eye and it was shielded. It should be noted that EndoCoat was used extensively during the case to protect the cornea endothelium. DISPOSITION: The patient tolerated the procedure well and was wheeled to the post anesthesia care unit in stable condition. I attest to the content of the Intraoperative Record and any orders documented therein. Any exceptions are noted below. I attest to the content of the Intraoperative Record and any orders documented therein. Any exceptions are noted below.
--- NOTE | 2017-04-27 07:30 | Discharge Instructions-SurgCtr ---
Discharge Instructions Date of Service Apr 27, 2017. Visit Reason for Visit: Cataract Left Eye Discharge Discharge Diagnosis / Problem: cataract left eye Discharge Goals Goal(s): Improve function Activity Recommendations Activity Limitations: per Instructions/Follow-up section Lifting Limitations: no more than 5 pounds Anesthesia . Post Anesthesia Instructions: If you have had General Anesthesia or IV Sedation: * Do not drive today. * Resume driving when surgeon permits. * Do not make important decisions or sign legal documents today. * Call surgeon for: 1. Temperature elevations greater than 101 degrees F. 2. Uncontrollable pain. 3. Excessive bleeding. 4. Persistent nausea and vomiting. 5. Medication intolerance (nausea, vomiting or rash). * For nausea and vomiting use only clear liquids such as: tea, soda, bouillon until nausea subsides, then gradually increase diet as tolerated. * If you have any concerns or questions, call your surgeon's office. If physician is unavailable and it is an emergency, call 911 or go to the nearest emergency room. . Instructions / Follow-Up Instructions / Follow-Up ACTIVITY RECOMMENDATIONS: * Light activities * You may walk outside, read, watch television. * Mild irritation and blurred vision are common for the first few days, redness around the white part of the eye is common. MEDICATIONS: Resume previous medications unless instructed otherwise by your surgeon. Eye drops (today and tomorrow): Cipro - one drop in operative eye every 2 hours while awake Prednisolone 1% - one drop in operative eye every 2 hours while awake Ilevro - one drop operative eye 1 times daily SPECIAL CARE INSTRUCTIONS: * If any problems or concerns, please call Dr. Jordan's office at . * Keep plastic shield taped over eye to sleep at night. * Keep plastic shield taped over eye except to administer eye drops. * Keep plastic shield on until office visit the following day. FOLLOW UP VISIT: Follow-up with Dr. Jordan in the [place] office as scheduled. If not already scheduled, please call the office at . Diet Recommendations Home Diet: resume previous diet Procedures Procedures Performed: Left Eye Cataract Phacoemulisification With Intraocular Lens Implant Pending Studies Studies pending at discharge: no Medical Emergencies . Who to Call and When: Medical Emergencies: If at any time you feel your situation is an emergency, please call 911 immediately. . Non-Emergent Contact Non-Emergency issues call your: Post Tensioning Ironworker Helper . . "Provider Documentation" section prepared by Kushal Jordan. .
[2017-04-27 07:33] VITALS: TEMP 36.5
[2017-04-27 07:48] VITALS: BP 157/81; PULSE 61; O2SAT 97
--- NOTE | 2017-04-27 07:59 | Anesthesia Progress Nt - [facility] ---
Anesthesia Post Op Note Date & Time Apr 27, 2017 at 07:59 Vital Signs Pain Intensity: 0 Vital Signs Past 12 Hours Date Time Temp Pulse Resp B/P (MAP) Pulse Ox O2 Delivery O2 Flow Rate FiO2 04/27/17 07:48 61 16 157/81 (106) 97 Room Air 04/27/17 07:33 36.5 61 16 166/92 (116) 96 Room Air 04/27/17 06:28 36.6 68 16 148/84 (105) 97 Room Air Notes Mental Status: alert / awake / arousable, participated in evaluation Pt Amnestic to Procedure: Yes Nausea / Vomiting: adequately controlled Pain: adequately controlled Airway Patency, RR, SpO2: stable & adequate BP & HR: stable & adequate Hydration State: stable & adequate Anesthetic Complications: no major complications apparent
== END | disposition home or self-care (01) ==
LOC: X.SURG 06:13
PROVIDERS: ATTEND Ophthalmology
DX: H25.12 Age-related nuclear cataract, left eye (principal); I10 Essential (primary) hypertension; E78.00 Pure hypercholesterolemia, unspecified; Z79.899 Other long term (current) drug therapy; Z79.82 Long term (current) use of aspirin

== ENCOUNTER → 2017-05-11 | Day surgery (SDC) | payer BC ==
[2017-05-07 11:27] VITALS: Ht 157.5 cm; Wt 77.3 kg
[~2017-05-11] VITALS: Ht 157.5 cm; Wt 77.3 kg
[~2017-05-11] MED LIST changes: +ATROPINE SULFATE 0.1 MG/ML 5ML SYR IV PRN; -BRIMONIDINE TARTRATE 0.2% 5ML ONE; +EpHEDrine SULFATE INJ 50 MG/ML AMP IV PRN; -LIDOCAINE 4% OP SOLN DROP CHARGE OPL SCH; +LIDOCAINE 4% OP SOLN DROP CHARGE OPR SCH; -LIDOCAINE HCL 2% 2 ML VIAL (20MG/ML) ONE; +MELO-84 PO; -MELO15TA4 PO; -PROPARACAINE 0.5% OP SOLN PER DROP CHARGE OPL SCH; +PROPARACAINE 0.5% OP SOLN PER DROP CHARGE OPR SCH; -PROPOFOL IV EMULSION 10 MG/ML 20 ML VIAL IV ONE; -VISCOAT 0.5ML SYRINGE INT OCU ONE
[2017-05-11] MEDS: PHENYLEPHRINE HCL 2.5% OP SOLN PER DROP CHARGE OPR SCH ×2 (07:05→07:15)
[2017-05-11] MEDS: TROPICAMIDE 1% OP SOLN PER DROP CHARGE OPR SCH ×2 (07:07→07:16)
[2017-05-11] MEDS: CYCLOPENTOLATE HCL 1% OP SOLN PER DROP CHARGE OPR SCH ×2 (07:08→07:18)
[2017-05-11] MEDS: KETOROLAC 0.5% OP SOLN PER DROP CHARGE OPR SCH ×2 (07:09→07:19)
[2017-05-11] MEDS: MOXIFLOXACIN OPH SOLN PER DROP CHARGE OPR SCH ×2 (07:10→07:20)
--- NOTE | 2017-05-11 08:15 | [facility] Operative Report ---
Operative Report Operative Date May 11, 2017. Pre-Operative Diagnosis Cataract Right Eye Post-Operative Diagnosis Same Procedure(s) Performed Right Cataract Phacoemulsification With Intraocular Lens Implant Surgeon Dr. Jordan Contamination Consultant Surgeon(s) None Estimated Blood Loss 0ml Findings cataract right eye Fluids see anesthesia record Specimens None Drains None Anesthesia Type MAC Complication(s) none Disposition no Recovery Room / PACU Indications decreased vision right eye Description of Procedure After informed consent was obtained in the holding area the patient was wheeled back to the operating room where cardiac monitoring leads and oxygen by nasal cannula was administered by Anesthesia. Gentle IV sedation was given, and the patient's right eye was prepped and draped in usual sterile fashion. A wire lid speculum was placed into the right eye and the operating microscope was swung into position. Using 0.12 forceps and a Supersharp blade a paracentesis port was made 2 o'clock hours away from the 9 o'clock position of the patient's right eye. 1% non-preserved Lidocaine was then injected into the anterior chamber for anesthesia. A 2.0 mm keratotome blade was then used to make a shelved clear corneal incision at the 9 o'clock position of the right eye. Amvisc was injected into the anterior chamber and a cystotome and Utrata forceps were used to perform a curvilinear capsulorrhexis. BSS on a hydrodissection cannula was used to hydrodissect the lens nucleus away from the capsular bag. The phacoemulsification handpiece was then used in a stop and chop fashion to remove the lens nucleus. The irrigation and aspiration handpiece was then used to remove the residual cortical material. Amvisc was injected into the capsular bag and anterior chamber and a Bausch & Lomb MX60 20.0 Diopter intraocular lens was injected into the capsular bag. Irrigation and aspiration handpiece was used to remove the residual viscoelastic material. The wounds were hydrated and noted to be watertight. The wire lid speculum was removed from the eye. Vigamox, Brimonidine, and TobraDex ointment were placed on the eye and it was shielded. It should be noted that EndoCoat was used extensively during the case to protect the cornea endothelium. DISPOSITION: The patient tolerated the procedure well and was wheeled to the post anesthesia care unit in stable condition. I attest to the content of the Intraoperative Record and any orders documented therein. Any exceptions are noted below. I attest to the content of the Intraoperative Record and any orders documented therein. Any exceptions are noted below.
--- NOTE | 2017-05-11 08:16 | Discharge Instructions-SurgCtr ---
Discharge Instructions Date of Service May 11, 2017. Visit Reason for Visit: Cataract Right Eye Discharge Discharge Diagnosis / Problem: cataract right eye Discharge Goals Goal(s): Improve function Activity Recommendations Activity Limitations: per Instructions/Follow-up section Lifting Limitations: no more than 5 pounds Anesthesia . Post Anesthesia Instructions: If you have had General Anesthesia or IV Sedation: * Do not drive today. * Resume driving when surgeon permits. * Do not make important decisions or sign legal documents today. * Call surgeon for: 1. Temperature elevations greater than 101 degrees F. 2. Uncontrollable pain. 3. Excessive bleeding. 4. Persistent nausea and vomiting. 5. Medication intolerance (nausea, vomiting or rash). * For nausea and vomiting use only clear liquids such as: tea, soda, bouillon until nausea subsides, then gradually increase diet as tolerated. * If you have any concerns or questions, call your surgeon's office. If physician is unavailable and it is an emergency, call 911 or go to the nearest emergency room. . Instructions / Follow-Up Instructions / Follow-Up ACTIVITY RECOMMENDATIONS: * Light activities * You may walk outside, read, watch television. * Mild irritation and blurred vision are common for the first few days, redness around the white part of the eye is common. MEDICATIONS: Resume previous medications unless instructed otherwise by your surgeon. Eye drops (today and tomorrow): Cipro - one drop in operative eye every 2 hours while awake Prednisolone 1% - one drop in operative eye every 2 hours while awake Ilevro - one drop operative eye 1 times daily SPECIAL CARE INSTRUCTIONS: * If any problems or concerns, please call Dr. Jordan's office at . * Keep plastic shield taped over eye to sleep at night. * Keep plastic shield taped over eye except to administer eye drops. * Keep plastic shield on until office visit the following day. FOLLOW UP VISIT: Follow-up with Dr. Jordan in the [place] office as scheduled. If not already scheduled, please call the office at . Diet Recommendations Home Diet: resume previous diet Procedures Procedures Performed: Right Cataract Phacoemulsification With Intraocular Lens Implant Pending Studies Studies pending at discharge: no Medical Emergencies . Who to Call and When: Medical Emergencies: If at any time you feel your situation is an emergency, please call 911 immediately. . Non-Emergent Contact Non-Emergency issues call your: Shoe Reconditioner . . "Provider Documentation" section prepared by Kushal Jordan. .
[2017-05-11 08:17] VITALS: TEMP 37.1
--- NOTE | 2017-05-11 08:29 | Anesthesiology Progress Note ---
Anesthesia Post Op Note Date & Time May 11, 2017 at 08:29 Vital Signs Pain Intensity: 0 Vital Signs Past 12 Hours Date Time Temp Pulse Resp B/P (MAP) Pulse Ox O2 Delivery O2 Flow Rate FiO2 05/11/17 08:17 37.1 57 16 165/80 (108) 95 Room Air 05/11/17 06:44 36.7 66 20 161/83 (109) 93 Room Air Notes Mental Status: alert / awake / arousable, participated in evaluation Nausea / Vomiting: adequately controlled Pain: adequately controlled Airway Patency, RR, SpO2: stable & adequate BP & HR: stable & adequate Hydration State: stable & adequate Anesthetic Complications: no major complications apparent
[2017-05-11 08:38] VITALS: BP 160/77; PULSE 57; O2SAT 98
== END | disposition home or self-care (01) ==
LOC: X.SURG 06:34
PROVIDERS: ATTEND Ophthalmology
DX: H26.9 Unspecified cataract (principal); I10 Essential (primary) hypertension; K21.9 Gastro-esophageal reflux disease without esophagitis; M19.90 Unspecified osteoarthritis, unspecified site; Z90.49 Acquired absence of other specified parts of digestive tract; Z98.42 Cataract extraction status, left eye; Z88.2 Allergy status to sulfonamides; Z88.1 Allergy status to other antibiotic agents; Z79.82 Long term (current) use of aspirin; Z79.899 Other long term (current) drug therapy; Z98.890 Other specified postprocedural states

== ENCOUNTER → 2017-06-09 | Outpatient (CLI) | payer BC ==
[~2017-06-09] MED LIST changes: -500ML BSS 0.3ML EPI 1:1000PF IRRIG ONE; -ACETAMINOPHEN 325 MG TAB PO PRN; -AMVISC PLUS 0.8ML SYRINGE INT OCU ONE; -ATROPINE SULFATE 0.1 MG/ML 5ML SYR IV PRN; -BRIMONIDINE TART 0.2% OP SOLN PER DROP CHARGE ONE; -BSS FLUSH ONE; -ENDOCOAT 0.85ML SYRINGE INT OCU ONE; -EpHEDrine SULFATE INJ 50 MG/ML AMP IV PRN; -EpINEphrine INJ 1MG/ML AMP 1 MG/ML AMP ONE; -LACTATED RINGER'S 1000ML 500 ML IV SCH; -LIDOCAINE 4% OP SOLN DROP CHARGE ONE; -LIDOCAINE 4% OP SOLN DROP CHARGE OPR SCH; -LIDOCAINE HCL 1% MPF 2 ML VIAL ONE; -MIDAZOLAM HCL 1 MG/ML 2ML VIAL ONE; -MOXIFLOXACIN OPH SOLN PER DROP CHARGE ONE; -POVIDONE-IODINE OP SOLN 30 ML BTL ONE; -PROPARACAINE 0.5% OP SOLN PER DROP CHARGE OPR SCH; -TOBRAMYCIN/DEXAMETHASONE OPH OINT PER APPLN CHARGE ONE
== END | disposition home or self-care (01) ==
LOC: C.LAB1850 14:25
PROVIDERS: ATTEND Obstetrics & Gynecology
DX: R35.0 Frequency of micturition (principal)

== ENCOUNTER → 2017-07-01 | Outpatient (CLI) | payer BC ==
[2017-07-01 13:57] LABS: BLOOD UREA NITROGEN 21 mg/dl (7-18); CALCIUM 9.1 mg/dl (8.5-10.1); CARBON DIOXIDE 26 mmol/L (21-32); CREATININE 0.81 mg/dl (0.60-1.20); GLUCOSE 91 mg/dl (70-99); POTASSIUM 3.5 mmol/L (3.5-5.1); SODIUM 141 mmol/L (136-145)
[2017-07-01 14:08] LABS: ALT/SGPT 23 U/L (12-78); AST/SGOT 22 U/L (15-37); CHOLESTEROL 178 mg/dl (0-200); LDL CHOLESTEROL CALCULATED 93 mg/dl
== END | disposition home or self-care (01) ==
LOC: C.LABMFLN 08:23
PROVIDERS: ATTEND Family Medicine
DX: E78.00 Pure hypercholesterolemia, unspecified (principal); I10 Essential (primary) hypertension; E55.9 Vitamin D deficiency, unspecified

== ENCOUNTER → 2017-10-19 | Outpatient (CLI) | payer BC, OTHER ==
[~2017-10-19] MED LIST changes: -ASPCH81X PO; +DICL50TA3 PO; -MELO-84 PO
--- NOTE | 2017-10-19 12:55 | DIAGNOSTIC IMAGING REPORT ---
CHEST 2 VIEWS ROUTINE CLINICAL HISTORY: PAT preoperative evaluation COMPARISON STUDY: 04/16/2016 FINDINGS: Slight chronic interstitial change. No focal infiltrate. Diaphragms smooth. Moderate degenerative changes thoracic spine. IMPRESSION: No acute process. Chronic interstitial change. The above report was generated using voice recognition software. It may contain grammatical, syntax or spelling errors. Electronically signed by: Sammy Cruz M.D. 10/19/2017 12:53 PM Dictated Date/Time: 10/19/2017 12:53 PM
[2017-10-19 13:01] LABS: MEAN CORPUSCULAR HGB CONC 32.9 g/dl (32-36)
[2017-10-19 13:13] LABS: PTT PATIENT 27.3 SECONDS (21.0-31.0)
[2017-10-19 13:20] LABS: BLOOD UREA NITROGEN 21 mg/dl (7-18); CALCIUM 8.7 mg/dl (8.5-10.1); CARBON DIOXIDE 24 mmol/L (21-32); CREATININE 0.81 mg/dl (0.60-1.20); GLUCOSE 94 mg/dl (70-99); POTASSIUM 3.9 mmol/L (3.5-5.1); SODIUM 140 mmol/L (136-145)
[2017-10-19 13:32] LABS: HEMOGLOBIN 13.8 g/dL (12.0-16.0); MEAN CELL VOLUME 91.7 fL (80-100); MEAN CORPUSCULAR HEMOGLOBIN 30.1 pg (25-34); RED CELL DISTRIBUTION WIDTH CV 14.1 % (11.5-14.5); RED CELL DISTRIBUTION WIDTH SD 47.7 fL (36.4-46.3); WHITE BLOOD COUNT 7.75 K/uL (4.8-10.8)
[2017-10-19 14:03] LABS: PLATELET COUNT 137 K/uL (130-400)
[2017-10-19 14:04] LABS: BASO % 0.8 %; BASO ABS # 0.06 K/uL (0-0.2); EOS % 2.5 %; EOS ABS # 0.19 K/uL (0-0.5); IG# 0.02 K/uL (0.00-0.02); MONO % 8.1 %; MONO ABS # 0.63 K/uL (0.11-0.59); NEUT % 57.3 %; NEUT ABS # 4.45 K/uL (1.4-6.5)
== END | disposition home or self-care (01) ==
LOC: C.RAD 12:00
PROVIDERS: ATTEND Orthopaedic Surgery Sports Medicine
DX: Z01.810 Encounter for preprocedural cardiovascular examination (principal); Z01.812 Encounter for preprocedural laboratory examination; Z01.818 Encounter for other preprocedural examination

== ENCOUNTER → 2017-11-04 | Outpatient (CLI) | payer BC | END | disposition home or self-care (01) | LOC: C.LABMFLN 10:07 | PROVIDERS: ATTEND Family Medicine | DX: N39.0 Urinary tract infection, site not specified (principal) ==